=== PATIENT | female | born 2005 | race Caucasian/White ===

== ENCOUNTER 2023-10-16 13:52 | Emergency (ER) | payer BC ==
[2023-10-16] MEDS ORDERED: Naloxone 0.4 MG/ML SDV IVPUSH PRN (14:24)
[2023-10-16 14:55] LABS: BASOPHILS ABSOLUTE AUTO 0.06 K/uL (0.00-0.20); BASOPHILS PERCENT AUTO 0.7 % (0.0-1.0); EOSINOPHILS ABSOLUTE AUTO 0.15 K/uL (0.00-0.45); EOSINOPHILS PERCENT AUTO 1.6 % (0.0-6.0); HEMATOCRIT 39.1 % (37.0-47.0); HEMOGLOBIN 13.9 g/dL (12.0-16.0); IMMATURE GRAN ABSOLUTE AUTO 0.03 K/uL (0.00-0.05); IMMATURE GRAN PERCENT AUTO 0.3 % (0.0-0.4); LYMPHOCYTES ABSOLUTE AUTO 1.98 K/uL (1.00-4.80); LYMPHOCYTES PERCENT AUTO 21.6 % (24.0-44.0); MEAN CORPUSCULAR HEMOGLOBIN 31.2 pg (28.0-32.0); MEAN CORPUSCULAR HGB CONC 35.5 g/dL (32.0-36.0); MEAN CORPUSCULAR VOLUME 87.7 fL (83.0-99.0); MEAN PLATELET VOLUME 9.5 fL (9.4-12.3); MONOCYTES ABSOLUTE AUTO 0.96 K/uL (0.00-0.80); MONOCYTES PERCENT AUTO 10.5 % (0.0-8.0); NEUTROPHILS PERCENT AUTO 65.3 % (41.0-71.0); PLATELET COUNT,PLT 243 K/uL (150-400); RED BLOOD CELL COUNT 4.46 M/uL (4.10-5.30); WHITE BLOOD CELL COUNT,WBC 9.18 K/uL (3.9-11.3)
[2023-10-16] MEDS: Sodium Chloride 0.9% 1,000 ML IV ONE (14:58)
[2023-10-16] MEDS: Sodium Chloride 0.9% 10 ML Syringe FLUSH PRN (14:58)
[2023-10-16] MEDS: Sodium Chloride 0.9% 2.5 ML Syringe FLUSH PRN (14:58)
[2023-10-16] MEDS: Morphine 4 MG/ML Syringe IVPUSH ONE (14:59)
[2023-10-16] MEDS: Ondansetron 4 MG/2 ML SDV IVPUSH ONE (14:59)
[2023-10-16 15:27] LABS: ALANINE AMINOTRANSFERASE,ALT 24 IU/L (14-63); ALBUMIN 3.9 g/dL (3.4-5.0); ALKALINE PHOSPHATASE 50 U/L (46-116); ASPARTATE AMNIOTRANSFERASE,AST 14 IU/L (15-37); BILIRUBIN TOTAL 0.4 mg/dL (0.2-1.0); BLOOD UREA NITROGEN,BUN 14 mg/dL (7.0-18.0); CALCIUM 9.3 mg/dL (8.5-10.1); CARBON DIOXIDE,CO2 24.6 mmol/L (21.0-32.0); CHLORIDE,CL 103 mmol/L (98-107); CREATININE 0.8 mg/dL (0.6-1.0); EST CRCL DRUG DOSING (CG) 94.38 mL/min; GLUCOSE RANDOM 90 mg/dL (74-106); LIPASE 25 U/L (16-77); POTASSIUM,K 3.9 mmol/L (3.5-5.1); PROTEIN TOTAL,TP 7.8 g/dL (6.4-8.2); SODIUM,NA 138 mmol/L (136-145)
[2023-10-16 15:31] LABS: ESTIMATED GFR 108 mL/min (>60); HCG QUANTITATIVE < 1.0 mIU/mL
[2023-10-16 15:47] LABS: BILIRUBIN,URINE NEGATIVE (NEGATIVE); COLOR,URINE YELLOW; GLUCOSE,URINE NEGATIVE (NEGATIVE); KETONES,URINE NEGATIVE (NEGATIVE); LEUKOCYTE ESTERASE,URINE SMALL (NEGATIVE); NITRITE,URINE NEGATIVE (NEGATIVE); OCCULT BLOOD,URINE NEGATIVE (NEGATIVE); PH,URINE 7.5 (5.0-8.0); PROTEIN,URINE NEGATIVE (NEGATIVE); UROBILINOGEN,URINE 0.2 EU/dL (<2.0)
[2023-10-16 15:58] LABS: APPEARANCE,URINE HAZY
[2023-10-16 16:00] LABS: BACTERIA,URINE FEW (NEGATIVE); EPITHELIAL CELLS,URINE MANY (NONE-FEW); RBC,URINE 0-2 (0-2/HPF)
[2023-10-16] MEDS: Iopamidol 755 MG/ML 500 ML Multipack Bottle IVPUSH STA (16:04)
[2023-10-16] MEDS: Morphine 2 MG/ML SYRINGE IVPUSH ONE (18:30)
== END 2023-10-16 18:40 | disposition home or self-care (01) ==
LOC: MW.ED 13:52
DX: R10.32 Left lower quadrant pain (principal); R10.31 Right lower quadrant pain
CPT/HCPCS: 36415; 74177; 76857; 80053; 81001; 83690; 84702; 85025; 87086; 96361; 96374; 96375; 96376; 99284; J2270; J2405; J3490; J7030; Q9967

== ENCOUNTER → 2025-03-04 | Day surgery (SDC) | payer BC ==
[~2025-03-04] MED LIST: Midazolam 1 MG/ML 2 ML SDV ONE; Propofol 200 MG/20 ML SDV ONE; Sodium Chloride 0.9% 10 ML Syringe FLUSH PRN; Sodium Chloride 0.9% 2.5 ML Syringe FLUSH PRN
[2025-03-04] MEDS: Lactated Ringers 1,000 ML IV SCH (11:15)
== END | disposition home or self-care (01) ==
LOC: MW.SDS 10:33
PROVIDERS: ATTEND Surgery
DX: K31.89 Other diseases of stomach and duodenum (principal); F17.290 Nicotine dependence, other tobacco product, uncomplicated
CPT/HCPCS: 43239; 81025; J2003; J2250; J2704; J7120; 00731